=== PATIENT | male | born 1980 | race African-American/Black ===

== ENCOUNTER 2018-06-22 21:39 | Emergency (ER) | payer OTHER ==
--- NOTE | 2018-06-22 23:00 | CT ---
CT HEAD NONCONTRAST: 06/22/18 HISTORY: Trauma. Head injury. FINDINGS: There is no evidence of acute intracranial hemorrhage or infarct. Ventricles appear normal in size, s hape, and position. There is no mass effect or shift of midline structures. Postoperative changes of the left maxillary sinus are apparent. IMPRESSION: No acute intracranial abnormalities are demonstrated. POS: [facility]
--- NOTE | 2018-06-22 23:01 | CT ---
CT CERVICAL SPINE NONCONTRAST: 06/22/18 HISTORY: Neck injury. FINDINGS: Vertebral body heights and alignment are maintained. Cervicothoracic junction intact. No acute fractu re or dislocation. Emphysematous changes of the lung parenchyma are apparent at the lung apices, righ t greater than left. IMPRESSION: No acute osseous abnormalities of the cervical spine are demonstrated. POS: [facility]
[2018-06-22] MEDS ORDERED: Lidocaine 1% (PF) 30 ML VIAL ONE (23:42)
== END 2018-06-23 00:28 | disposition home or self-care (01) ==
LOC: ERS 21:39
DX: S01.511A Laceration without foreign body of lip, initial encounter (principal); F31.9 Bipolar disorder, unspecified; F20.9 Schizophrenia, unspecified; F41.9 Anxiety disorder, unspecified; F17.210 Nicotine dependence, cigarettes, uncomplicated; I10 Essential (primary) hypertension; Y04.8XXA Assault by other bodily force, initial encounter
CPT/HCPCS: 12013; 70450; 72125; J2001

== ENCOUNTER 2023-07-03 12:51 | Outpatient (CLI) | payer OTHER | END 2023-07-03 12:52 | disposition home or self-care (01) | LOC: ULT 12:51 | PROVIDERS: ATTEND Nurse Practitioner Family | DX: R31.9 Hematuria, unspecified (principal); R89.9 Unspecified abnormal finding in specimens from other organs, systems and tissues | CPT/HCPCS: 76770 ==

== ENCOUNTER 2024-07-27 17:12 | Emergency (ER) | payer OTHER | END 2024-07-27 18:22 | disposition left against medical advice (07) | LOC: ERS 17:12 | DX: Z53.21 Procedure and treatment not carried out due to patient leaving prior to being seen by health care provider (principal) ==

== ENCOUNTER 2024-07-27 19:08 | Emergency (ER) | payer OTHER ==
[2024-07-27] MEDS ORDERED: Acetaminophen 500 MG TAB ONE (20:42)
== END 2024-07-27 23:47 | disposition home or self-care (01) ==
LOC: ERS 19:08
DX: S06.0X0A Concussion without loss of consciousness, initial encounter (principal); R20.2 Paresthesia of skin; M62.81 Muscle weakness (generalized); H93.19 Tinnitus, unspecified ear; I10 Essential (primary) hypertension; J44.9 Chronic obstructive pulmonary disease, unspecified; F17.210 Nicotine dependence, cigarettes, uncomplicated
CPT/HCPCS: 70450; 72125

== ENCOUNTER 2025-09-08 13:04 | Outpatient (CLI) | payer OTHER | END 2025-09-08 13:05 | disposition home or self-care (01) | LOC: CT 13:04 | PROVIDERS: ATTEND Internal Medicine | DX: L98.9 Disorder of the skin and subcutaneous tissue, unspecified (principal); J32.0 Chronic maxillary sinusitis | CPT/HCPCS: 70487 ==